=== PATIENT | female | born 1980 | race Caucasian/White ===

== ENCOUNTER → 2017-07-21 08:49 | Outpatient (CLI) | payer BC ==
[~2017-07-21 08:49] MED LIST: MEPERIDINE HCL50 MG PO
[2017-08-15 06:09] VITALS: BMI 28.4
== END | disposition home or self-care (01) ==
LOC: D.NM 08:49
DX: R10.11 Right upper quadrant pain (principal)

== ENCOUNTER 2017-08-15 05:05 | Day surgery (SDC) | payer BC ==
[~2017-08-15] VITALS: Ht 154.9 cm; Wt 68.0 kg
--- NOTE | ~2017-08-15 | OP ---
PATIENT NAME: MELLY DOE MEDICAL RECORD: [id number] :76 [facility] AD[facility]ION DATE: SURGEON: FRED BOYKIN MD DATE OF OPERATION: 08/15/2017 PREOPERATIVE DIAGNOSES: 1. Gallstones. 2. Spherocytosis. 3. Epigastric pain. POSTOPERATIVE DIAGNOSES: 1. Gallstones. 2. Spherocytosis. 3. Epigastric pain. PROCEDURE: Laparoscopic cholecystectomy. SURGEON: Fred Boykin MD REPORT OF PROCEDURE: The patient's abdomen was prepped and draped in sterile fashion. A cutdown was made on the superior aspect of the umbilicus, 0 Vicryls were placed in the fascia bilaterally and the fascia was incised with 15-blade. I then bluntly entered the peritoneal cavity and placed a 12-mm Timothy port. Under direct visualization, a 5 mm trocar was placed in the epigastrium and 2 more 5-mm trocars were placed in the right subcostal region. Initially, I inspected the patient's epigastric region to assure there was no sign of a hernia. No hernia was seen in the anterior abdominal wall. At this point, the gallbladder was grasped and elevated. There was no sign of any acute inflammatory changes. The cystic artery and cystic duct were dissected free and these were clipped proximally and distally and ligated in standard fashion. The gallbladder was taken off the liver bed using electrocautery and placed into the right upper quadrant. Any bleeding from the liver bed was treated with electrocautery. We irrigated out the right upper quadrant and assured there was no sign of any bleeding or bile leakage. At this point, the ports and insufflation were then removed and the gallbladder was taken out through the umbilicus. The umbilical fascia was closed with interrupted 0 Vicryls times 3. The wounds were then irrigated out with normal saline and infused with 10 mL of 0.25% Marcaine with epinephrine. The skin incisions were all closed with subcutaneous 5-0 Monocryl and dressed appropriately. COMPLICATIONS: None. CONDITION: Stable. ANESTHESIA: General endotracheal and local. BLOOD LOSS: Minimal. TRANSINT:[id number] Voice Confirmation ID: [id number] DOCUMENT ID: [id number] CC: Nicole Sethi AR. OPERATIVE REPORT [id number] MELLY DOE CHRISTIAN MD at 1418 CC: [id number] DICTATION DATE: 08/15/17 0845 LINE ERECTOR APPRENTICE: 08/15/17 0956 [facility] 08/15/17 [place] [id number] [facility] [place] [address]
[2017-08-15 05:32] LABS: BASOPHILS 0.9 % (0-2); EOSINOPHILS 2.7 % (0-7); HEMATOCRIT 41.1 % (36.0-48.0); HEMOGLOBIN 13.3 g/dL (12-16); IMMATURE GRANULOCYTES 0.2 % (0-5); LYMPHOCYTES 32.6 % (15-50); MCH 25.7 pg (26.0-34.0); MCHC 32.4 g/dL (31.0-37.0); MCV 79.5 fL (80.0-100.0); MEAN PLATELET VOLUME 9.3 fL (7.4-10.4); MONOCYTES 10.4 % (2-11); NEUTROPHILS 53.2 % (40-80); PLATELET COUNT 524 10x3/uL (130-400); RBC 5.17 10x6/uL (4.00-5.40); RDW 15.3 % (11.5-14.5); WBC 8.2 10x3/uL (4.8-10.8)
[2017-08-15 05:39] LABS: CALC OSMOLALITY 277 mosm/kg (275-300); CALCIUM 10.4 mg/dL (8.5-10.1); CARBON DIOXIDE 26.7 mmol/L (21.0-32.0); CHLORIDE - SERUM 107 mmol/L (98-107); CREATININE - SERUM 0.8 mg/dL (0.6-1.3); GLUCOSE 110 mg/dL (74-106); SODIUM 139 mmol/L (136-145); UREA NITROGEN 11 mg/dL (7-18); eGFR NON AFRICAN AMERICAN 85 mL/min (90-120)
[2017-08-15 06:09] VITALS: BP 111/60; Ht 154.9 cm; Wt 68.0 kg
[2017-08-15 06:34] LABS: HCG URINE NEGATIVE (NEGATIVE)
[2017-08-15] MEDS ORDERED: MEPERIDINE HCL50 MG PO (08:40)
== END 2017-08-15 10:30 | disposition home or self-care (01) ==
LOC: D.OPS 05:05
PROVIDERS: Surgery
DX: K80.10 Calculus of gallbladder with chronic cholecystitis without obstruction (principal); D58.0 Hereditary spherocytosis; Z01.812 Encounter for preprocedural laboratory examination